=== PATIENT | female | born 1965 | race American Indian/Alaskan Native ===

== ENCOUNTER 2016-12-07 05:59 | Day surgery (SDC) | payer OTHER ==
--- NOTE | 2016-12-07 07:03 | Anesthesia Consultation ---
Anesthesia Consult and Med Hx Date of service: 12/07/16 - Airway Anesthetic Teeth Evaluation: Good ROM Head & Neck: Adequate Mental/Hyoid Distance: Adequate Mallampati Class: Class II Intubation Access Assessment: Probably Good - Pulmonary Exam CTA: Yes - Cardiac Exam Cardiac Exam: RRR - Pre-Operative Health Status ASA Pre-Surgery Classification: ASA3 Proposed Anesthetic Plan: General - Central Nervous System Hx Psychiatric Problems: No - Other Systems Hx Cancer: No Hx Obesity: Yes (morbid)
--- NOTE | 2016-12-07 07:03 | Anesthesia Day of Surgery ---
Anesthesia Day of Surgery - Day of Surgery Patient Examined: Yes Patient H&P Reviewed: Yes Patient is NPO: Yes
--- NOTE | 2016-12-07 07:14 | Short Stay Summary ---
Short Stay Documentation Date of service: 12/07/16 Narrative H&P: Pt is a 51yo BF LMP 11/25/16 presents for surgical evaluation and treatment of menorrhagia. Office biopsy was attempted, but failed due to cervical stenosis. She now presents for a Hysteroscopy with D&C. - History Principal diagnosis: Menorrhagia H&P: obtained from office Past Medical History: No medical history Past Surgical History: Other (BTL) Social history: no significant social history, single - Allergies and Medications Current Medications: Allergies No Known Allergies Allergy (Unverified 11/25/16 09:47) Home Medications Medication Instructions Recorded Confirmed Last Taken Type No Known Home Medications [No 11/25/16 11/25/16 Unknown History Reported Home Medications] Active Medications Famotidine (Pepcid) 20 mg IV PREOP NR Midazolam HCl (Versed) 2 mg IV PREOP NR Stop: 12/07/16 23:59 - Physical exam General appearance: no acute distress Integumentary: no rash HEENT: Atraumatic Lungs: Clear to auscultation Breasts: deferred Heart: Regular rate Gastrointestinal: normal Female Genitourinary: deferred Rectal Exam: deferred Extremities: no ischemia, No edema Neurological: Normal gait, Normal speech - Brief post op/procedure progress note Date of procedure: 12/07/16 Pre-op diagnosis: Menorrhagia Post-op diagnosis: same Procedure: 1. Hysteroscopy 2. D&C Anesthesia: MAC Findings: A 10-12 weeks size uterus with a submucosal fibroid and scant endometrial tissue. Surgeon: OSMAN MOYA Estimated blood loss: minimal Pathology: list (Endometrial currettings) Specimen disposition: to lab Condition: stable - Hospital course Hospital course: Unremarkable. - Disposition Condition at discharge: Good Disposition: DC- TO HOME OR SELFCARE - Discharge Diagnoses (1) Menorrhagia Status: Chronic Qualifiers: Menorrahagia type: with irregular cycle Qualified Code(s): N92.1 - Excessive and frequent menstruation with irregular cycle Short Stay Discharge Plan Activity: no restrictions Diet: regular Follow up with: OSMAN MOYA MD [Staff Physician] - 14 Days Prescriptions: HYDROcodone/APAP 5-325 [[place] 5/325] 1 each PO Q6HR PRN #10 tablet PRN Reason: Pain Ibuprofen [Motrin] 800 mg PO Q8HR PRN #30 tablet PRN Reason: Moder Pain Unrelieved By [place]
[2016-12-07] MEDS ORDERED: NACL BACTERIOSTATIC INFILTRATI ONE (07:35)
[2016-12-07] MEDS ORDERED: DIPRIVAN 10 MG/ML IV ONE ×2 (07:40→10:17)
[2016-12-07] MEDS ORDERED: XYLOCAINE MPF 2% ONE (07:40)
[2016-12-07] MEDS ORDERED: SUBLIMAZE ONE (07:40)
[2016-12-07 07:58] LABS: Hematocrit 34.2 % (30.3-42.9); Hemoglobin 11.7 gm/dl (10.1-14.3)
[2016-12-07] MEDS ORDERED: VERSED IV NR (08:00)
[2016-12-07] MEDS ORDERED: PEPCID IV NR (08:00)
[2016-12-07] MEDS ORDERED: ANCEF/STERILE WATER 2 GM/20 ML 2 GM/20 ML SYRINGE IV NR (08:00)
[2016-12-07] MEDS ORDERED: LACTATED RINGERS 1,000 ML IV SCH (08:00)
[2016-12-07] MEDS ORDERED: SORBITOL-MANNITOL IRRIG IR ONE (08:05)
[2016-12-07] MEDS ORDERED: NACL 0.9% IR ONE ×2 (08:05)
[2016-12-07] MEDS ORDERED: ZOFRAN ONE (08:29)
[2016-12-07] MEDS ORDERED: DECADRON ONE (08:29)
--- NOTE | 2016-12-07 08:54 | Operative Report ---
Operative Report Operative Report: PREOPERATIVE DIAGNOSIS: Menorrhagia POSTOPERATIVE DIAGNOSIS: Same OPERATIVE PROCEDURE: 1. Hysteroscopy 2. Dilatation and curettage. SURGEON: Vish Rojas MD ANESTHESIA: General Mac ANESTHESIOLOGIST: Dr. Robb ESTIMATED BLOOD LOSS: Less than 10 mL's FINDINGS: A 10-12 week size uterus with a large submucosal fibroid and scant endometrial tissue COMPLICATIONS: None COUNTS: Correct x3. PROCEDURE: After the patient was correctly identified, and after general anesthesia was administered, the patient was prepped and draped in the usual sterile fashion and placed in dorsal lithotomy position. First, the bladder was emptied using a straight catheter. Next, a speculum was placed in the vaginal vault and the anterior lip of the cervix was grasped using a single- tooth tenaculum. The uterus was sounded to 10 cm. The cervical os was sequentially dilated, and the hysteroscope was introduced into the cervical canal. Visualization of the endometrial cavity found a large submucosal fibroid and scant endometrial tissue. The hysteroscope was then removed and sharp curettage was performed yielding scant endometrial tissue which was sent to pathology. After all the endometrial tissue were removed, the procedure was considered complete. All instruments were removed from the vagina. The patient tolerated the procedure well and was transferred to the recovery room in stable condition.
--- NOTE | 2016-12-07 09:20 | Post Anesthesia Evaluation ---
- Post Anesthesia Evaluation Patient Participated: Yes Airway Patent: Yes Stable Respiratory Function: Yes Temp > 96.8F: Yes Pain Manageable: Yes Adequeate Hydration: Yes Anesthesia Complications: No Block Receding Appropriately: Not Applicable
[2016-12-07 10:02] VITALS: BP 134/72
== END 2016-12-07 10:37 | disposition home or self-care (01) ==
LOC: OR 05:59
PROVIDERS: ATTEND Obstetrics & Gynecology
DX: D25.0 Submucous leiomyoma of uterus (principal); N85.02 Endometrial intraepithelial neoplasia [EIN]; E66.01 Morbid (severe) obesity due to excess calories; Z68.43 Body mass index [BMI] 50.0-59.9, adult; Z98.51 Tubal ligation status
CPT/HCPCS: 36415; 58558; 81025; 85014; 85018; 88305; A4217; J0690; J1100; J2250; J2405; J2704; J3010; J7120

== ENCOUNTER 2017-01-18 12:59 | Emergency (ER) | payer OTHER ==
[2017-01-18 14:17] LABS: Hemoglobin 8.4 gm/dl (10.1-14.3); Mean Corpuscular HGB Conc 32 % (30-34); Mean Corpuscular Hemoglobin 29 pg (28-32); Mean Corpuscular Volume 89 fl (79-97); Platelet Count 292 K/mm3 (140-440); Red Blood Count 2.92 M/mm3 (3.65-5.03); Red Cell Distribution Width 15.5 % (13.2-15.2); White Blood Count 7.1 K/mm3 (4.5-11.0)
[2017-01-18 14:30] LABS: INR 1.35 (0.87-1.13)
[2017-01-18 14:33] LABS: Anion Gap 16 mmol/L; BUN/Creatinine Ratio 12.85; Blood Urea Nitrogen 9 mg/dL (7-17); Calcium 8.5 mg/dL (8.4-10.2); Carbon Dioxide 25 mmol/L (22-30); Chloride 99.9 mmol/L (98-107); Glucose 80 mg/dL (65-100); Potassium 4.2 mmol/L (3.6-5.0); Sodium 137 mmol/L (137-145)
[2017-01-18 15:03] LABS: Basophils % (Manual) 0 % (0.0-1.8); Blastocytes % (Manual) 0 %; Diff Status Complete; Hypochromasia 1+; Polychromasia Few
--- NOTE | 2017-01-18 20:22 | Ultrasound Report ---
FINAL REPORT EXAM: US PELVIC COMPLETE HISTORY: Vaginal bleeding TECHNIQUE: Transabdominal sonography of the pelvis. PRIORS: None. FINDINGS: Patient body habitus limits examination somewhat. The uterus is enlarged measuring 12.8 x 8.7 x 9.2 cm, has heterogeneous echogenicity and contains multiple fibroids, some probably partially calcified. Largest is located in mid posterior corpus region measuring 5.4 x 3.8 x 4.6 cm. Next largest noted in the anterior corpus-fundal region measuring 4.2 x 3.5 x 3.8 cm. Additional fibroid in the fundal region measuring 3.9 x 3.7 x 3.2 cm. The endometrial stripe is obscured and not confidently identified by the technician's helper. Neither ovary is confidently identified by the technician's helper. No adnexal masses or significant free peritoneal fluid. IMPRESSION: 1. Leiomyomatous change in the uterus. 2. Nonvisualization of the ovaries.
--- NOTE | 2017-01-18 22:16 | Emergency Department Report ---
HPI - General Chief Complaint: Vaginal Bleeding Time Seen by Provider: 01/18/17 21:49 - HPI HPI: Fully 11-year-old female brought to the ED with vaginal bleeding. Patient states symptoms have been going on for the past 3 months, had D&C by her upper cutter machine Dr. Vish Rojas in November. Patient states symptoms initially got better but not worsened. Patient denies any nausea, vomiting, chest pain, shortness of breath. ED Past Medical Hx - Past Medical History Hx Headaches / Migraines: Yes (migraines) Hx HIV: No Additional medical history: FIBROIDS - Social History Smoking Status: Never Smoker Substance Use Type: None - Medications Home Medications: Home Medications Medication Instructions Recorded Confirmed Last Taken Type HYDROcodone/APAP 5-325 [[place] 1 each PO Q6HR PRN #10 tablet 12/07/16 Unknown Rx 5/325] Ibuprofen [Motrin] 800 mg PO Q8HR PRN #30 tablet 12/07/16 Unknown Rx ED Review of Systems ROS: Stated complaint: HEAVY VAG BLEEDING Other details as noted in HPI Comment: All other systems reviewed and negative Genitourinary: other (vaginal bleeding) Physical Exam - Physical Exam Vital Signs: Vital Signs 01/18/17 01/18/17 01/18/17 13:07 17:58 21:03 Temperature 97 F L 98.4 F 98.5 F Pulse Rate 80 78 84 Respiratory 16 18 18 Rate Blood Pressure 139/90 147/106 130/54 O2 Sat by Pulse 100 100 100 Oximetry Physical Exam: GENERAL: The patient is well-developed well-nourished [] HEENT: Normocephalic. Atraumatic. Extraocular motions are intact. Patient has moist mucous membranes. NECK: Supple. No meningitic signs are noted. There is no adenopathy noted. CHEST/LUNGS: Clear to auscultation. There is no respiratory distress noted. HEART/CARDIOVASCULAR: Regular. There is no tachycardia. There is no gallop rub or murmur. ABDOMEN: Abdomen is soft, nontender. Patient has normal bowel sounds. There is no abdominal distention. SKIN: There is no rash. There is no edema. There is no diaphoresis. NEURO: The patient is awake, alert, and oriented. The patient is cooperative. The patient has no focal neurologic deficits. The patient has normal speech. Cranial nerves II through XII grossly intact, no drift. Moves all extremities well MUSCULOSKELETAL: There is no evidence of acute injury. ED Course Vital Signs 01/18/17 01/18/17 01/18/17 13:07 17:58 21:03 Temperature 97 F L 98.4 F 98.5 F Pulse Rate 80 78 84 Respiratory 16 18 18 Rate Blood Pressure 139/90 147/106 130/54 O2 Sat by Pulse 100 100 100 Oximetry ED Medical Decision Making - Lab Data Result diagrams: 01/18/17 13:53 01/18/17 13:53 Critical care attestation.: If time is entered above; I have spent that time in minutes in the direct care of this critically ill patient, excluding procedure time. ED Disposition Clinical Impression: Menorrhagia Qualifiers: Menorrahagia type: premenopausal Qualified Code(s): N92.4 - Excessive bleeding in the premenopausal period Disposition: DC-01 TO HOME OR SELFCARE Is pt being admited?: No Does the pt Need Aspirin: No Condition: Stable Referrals: PRIMARY CAREMD [Primary Care Provider] - 3-5 Days VISH ROJAS MD [Staff Physician] - 3-5 Days
[2017-01-18 22:42] VITALS: BP 112/70
== END 2017-01-18 22:30 | disposition home or self-care (01) ==
LOC: ED 12:59
DX: N92.0 Excessive and frequent menstruation with regular cycle (principal); G43.909 Migraine, unspecified, not intractable, without status migrainosus
CPT/HCPCS: 36415; 76856; 80048; 84702; 85007; 85025; 85610; 85730; 86850; 86900; 86901

== ENCOUNTER 2017-02-14 08:23 | Inpatient (IN) | payer OTHER ==
--- NOTE | 2017-02-13 10:40 | Anesthesia Consultation ---
Anesthesia Consult and Med Hx Date of service: 02/13/17 - Airway Anesthetic Teeth Evaluation: Good ROM Head & Neck: Adequate Mental/Hyoid Distance: Adequate Mallampati Class: Class II Intubation Access Assessment: Probably Good - Pulmonary Exam CTA: Yes - Cardiac Exam Cardiac Exam: RRR - Pre-Operative Health Status ASA Pre-Surgery Classification: ASA2 Proposed Anesthetic Plan: General - Pulmonary Hx Smoking: No Hx Asthma: No - Cardiovascular System Hx Hypertension: No - Central Nervous System Hx Psychiatric Problems: No - Other Systems Hx Cancer: No Hx Obesity: Yes (morbid)
[2017-02-13 11:22] LABS: Hematocrit 28.9 % (30.3-42.9); Hemoglobin 9.2 gm/dl (10.1-14.3); Mean Corpuscular HGB Conc 32 % (30-34); Mean Corpuscular Hemoglobin 27 pg (28-32); Mean Corpuscular Volume 85 fl (79-97); Platelet Count 258 K/mm3 (140-440); Red Blood Count 3.39 M/mm3 (3.65-5.03)
[2017-02-13 12:45] LABS: Basophils % (Manual) 0 % (0.0-1.8); Blastocytes % (Manual) 0 %
[2017-02-13 12:46] LABS: Hypochromasia 1+
[2017-02-13 12:48] LABS: Anisocytosis 1+; Diff Status Complete; Ovalocytes 1+; Platelet Estimate Consistent w Auto; Poikilocytosis 1+; Stomatocytes 1+
[~2017-02-14 08:23] MED LIST: NACL 0.9% 1000 ML 1,000 ML IV SCH; PEPCID PO NR; VERSED IV NR
[2017-02-14] MEDS ORDERED: ANCEF/STERILE WATER 2 GM/20 ML 2 GM/20 ML SYRINGE IV SCH (09:00)
--- NOTE | 2017-02-14 09:02 | History and Physical Report ---
History of Present Illness Date of examination: 02/14/17 Date of admission: 02/14/17 08:23 Chief complaint: Symptomatic fibroid uterus History of present illness: Pt is a 51yo BF LMP 12/14/16 presents for surgical evaluation and treatment of uterine fibroids. Pelvic u/s showed an enlarged uterus 16 x 11 x 8.4cm with 5 fibroids. Pt desires a Total Abdominal Hysterectomy with Ovarian conservation. Discussed the pros and cons of leaving the ovaries, and she desires to keep her ovaries. 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 Family/Genetic History: diabetes, hypertension Social history: no significant social history, single Medications and Allergies Allergies Allergy/AdvReac Type Severity Reaction Status Date / Time No Known Allergies Allergy Verified 02/10/17 08:43 Home Medications Medication Instructions Recorded Confirmed Last Taken Type No Known Home Medications [No 02/10/17 02/10/17 Unknown History Reported Home Medications] Active Meds: Active Medications Famotidine (Pepcid) 20 mg PO PREOP NR Stop: 02/14/17 23:00 Sodium Chloride (Nacl 0.9% 1000 Ml) 1,000 mls @ 100 mls/hr IV DIRECT LAMONT Stop: 02/14/17 23:00 Midazolam HCl (Versed) 2 mg IV PREOP NR Stop: 02/14/17 23:00 Review of Systems All systems: negative - Vital Signs Vital signs: Vital Signs Temp Pulse Resp BP 98.8 F 80 16 124/78 02/13/17 10:40 02/13/17 10:40 02/13/17 10:40 02/13/17 10:40 Temp Pulse Resp BP Pulse Ox 97.6 F 74 20 144/76 100 02/14/17 08:53 02/14/17 08:53 02/14/17 08:53 02/14/17 08:53 02/14/17 08:53 - Physical Exam Breasts: Positive: deferred Cardiovascular: Regular rate Lungs: Positive: Clear to auscultation Abdomen: Positive: normal appearance, soft Genitourinary (Female): Positive: normal external genitalia Vagina: Positive: normal moisture Uterus: Positive: enlarged Extremities: Positive: normal Results Result Diagrams: 02/13/17 Unknown Abnormal lab results 02/13/17 Range/Units Unknown RBC 3.39 L (3.65-5.03) M/mm3 Hgb 9.2 L (10.1-14.3) gm/dl Hct 28.9 L (30.3-42.9) % MCH 27 L (28-32) pg RDW 21.0 H (13.2-15.2) % Lymphocytes % (Manual) 47.0 H (13.4-35.0) % All other labs normal. Ultrasound: report reviewed Assessment and Plan - Patient Problems (1) Uterine fibroid Onset Date: 02/14/17 Current Visit: Yes Status: Acute Qualifiers: Uterine leiomyoma location: intramural and submucous Qualified Code(s): D25.1 - Intramural leiomyoma of uterus; D25.0 - Submucous leiomyoma of uterus Plan to address problem: A: Symptomatic uterine fibroids Chronic blood loss anemia P: Admit for a Total Abdominal Hysterectomy with Bilateral Salpingectomy (2) Chronic blood loss anemia Onset Date: 02/14/17 Current Visit: Yes Status: Chronic
[2017-02-14] MEDS ORDERED: NACL BACTERIOSTATIC INFILTRATI ONE (09:03)
[2017-02-14] MEDS ORDERED: ZEMURON IV ONE (09:39)
[2017-02-14] MEDS ORDERED: ZOFRAN ONE (09:39)
[2017-02-14] MEDS ORDERED: XYLOCAINE MPF 2% ONE ×3 (09:39→13:11)
[2017-02-14] MEDS ORDERED: SUBLIMAZE ONE (09:39)
[2017-02-14] MEDS ORDERED: DIPRIVAN 10 MG/ML IV ONE (09:39)
[2017-02-14] MEDS ORDERED: DECADRON ONE (09:39)
[2017-02-14] MEDS ORDERED: MORPHINE IV ONE (10:11)
[2017-02-14] MEDS ORDERED: NEURONTIN PO NR (11:00)
[2017-02-14] MEDS ORDERED: NACL 0.9% 1000 ML 1,000 ML ONE (11:27)
[2017-02-14] MEDS ORDERED: NEOSTIGMINE ONE (11:33)
[2017-02-14] MEDS ORDERED: ROBINUL ONE ×2 (11:33)
[2017-02-14] MEDS ORDERED: ACD-A 500 ML IV ONE (11:40)
[2017-02-14] MEDS ORDERED: ACD-A IV ONE (11:52)
[2017-02-14] MEDS ORDERED: NACL 0.9% IR ONE (11:52)
[2017-02-14] MEDS ORDERED: NARCAN 0.4 MG/1 ML IV PRN (12:54)
[2017-02-14] MEDS ORDERED: SODIUM CHLORIDE FLUSH SYRINGE 10 ML IV PRN (12:54)
[2017-02-14] MEDS ORDERED: TYLENOL PO PRN (12:55)
[2017-02-14] MEDS ORDERED: MILK OF MAGNESIA PO PRN (12:55)
[2017-02-14] MEDS ORDERED: ZOFRAN IV PRN (12:55)
[2017-02-14] MEDS ORDERED: ANCEF/NS 1 GM/50 ML 1 GM/50 ML BAG IV SCH (13:00)
--- NOTE | 2017-02-14 13:08 | Operative Report ---
Operative Report Operative Report: Date of procedure: 02/14/2017 Pre-operative diagnosis: 1. Symptomatic fibroid uterus 2. Menorrhagia Post-operative diagnosis: Same Procedure name(s): 1. Total abdominal hysterectomy 2. Bilateral salpingectomy Surgeon: Vish Rojas MD Laborer Vineyard: Paloma Randhawa SA Anesthesia: Epidural followed by general endotracheal intubation by Dr. Jackson EBL: 50 mls Findings: A 16 week size multi-myomatous uterus, tubes showing evidence of previous tubal ligation bilaterally and small ovaries bilaterally. Procedure: After the patient was first correctly identified and after general anesthesia was administered she was prepped and draped in usual in the usual sterile fashion and placed in the dorsolithotomy position. The skin knife was used to make a transverse skin incision. The incision was extended down to the layer of the fascia which was nicked in the midline and extended laterally using Bovie cautery. The rectus muscles were dissected off the rectus fascia both superiorly and inferiorly, the rectus bellies in the midline and the peritoneum was entered under direct visualization. Exploration of the pelvic organs found the uterus to be enlarged, about 16 weeks' size and the tubes showed evidence of previous tubal ligation bilaterally and ovaries were normal bilaterally. Next the bowels were packed back and the round ligaments were clamped, cauterized and cut using the Enseal device. The utero-ovarian ligaments were clamped, cauterized and cut, thus freeing the right ovary from the right uterine sidewall. Same procedure was performed on the left. The left round ligament was clamped, cauterized and cut using the Enseal device. The left utero-ovarian ligaments were clamped, cauterized and cut thus freeing the left ovary from the left uterine sidewall. The uterine vessels were then skeletonized bilaterally, and the bladder flap was taken down anteriorly. The uterine vessels were then clamped, cauterized and cut bilaterally, and the cardinal ligaments were sequentially clamped, cauterized and cut down to the level of the uterosacral ligaments. The cervix was then amputated from the vaginal cuff and the specimen was handed off the surgical field. The vaginal cuff was then made hemostatic using several sutures of 0 Vicryl suture in a [id number] configuration. After excellent hemostasis was assured copious amounts of irrigation was then performed. The retroperitoneum was reapproximated using 3-0 Vicryl suture in a running interlocking fashion. The Tisseel sealant was then sprayed across the vaginal cuff and the superior pedicles bilaterally and after excellent hemostasis was assured the procedure was considered complete. All instruments removed from abdomen, and the peritoneum was closed using 0 Vicryl suture in a running interlocking fashion and the rectus muscles were also loosely reapproximated using 0 Vicryl suture in a [id number] configuration. The fascia was then reapproximated using # 1 Vicryl suture in a running interlocking fashion, the subcutaneous layer made hemostatic using Bovie cautery and the skin edges reapproximated using 4-0 Vicryl suture in a subcuticular fashion. Patient tolerated the procedure well was transported to recovery room in stable condition.
[2017-02-14] MEDS: DILAUDID IV PRN ×4 (13:45→14:55)
[2017-02-14] MEDS ORDERED: DILAUDID ONE (13:47)
[2017-02-14] MEDS: fentaNYL-BUPIV 2 MCG/ML-0.125% 200 MCG/100 ML BAG EPIDURAL SCH (14:14)
[2017-02-14] MEDS ORDERED: XYLOCAINE 1% 20 mL ONE (14:19)
[2017-02-14] MEDS ORDERED: MARCAINE-EPI/PF 0.5%-1:200,000 INFILTRATI ONE (14:19)
[2017-02-14] MEDS ORDERED: TORADOL ONE (18:40)
[2017-02-14] MEDS: TORADOL IV SCH (18:40)
--- NOTE | 2017-02-14 18:54 | Post Anesthesia Evaluation ---
- Post Anesthesia Evaluation Patient Participated: Yes Airway Patent: Yes Stable Respiratory Function: Yes Nausea/Vomiting: No Temp > 96.8F: Yes Pain Manageable: Yes Adequeate Hydration: Yes Anesthesia Complications: No Block Receding Appropriately: Not Applicable Patient on Ventilator: No
[2017-02-14] MEDS: D5LR 1,000 ML IV SCH (20:03)
[2017-02-14] MEDS: COLACE PO SCH (22:44)
[2017-02-15] MEDS: TORADOL IV SCH ×4 (01:48→22:19)
[2017-02-15] MEDS: fentaNYL-BUPIV 2 MCG/ML-0.125% 200 MCG/100 ML BAG EPIDURAL SCH (01:48)
[2017-02-15 03:35] LABS: Hematocrit 25.4 % (30.3-42.9); Hemoglobin 8.3 gm/dl (10.1-14.3)
[2017-02-15] MEDS ORDERED: ANCEF/NS 1 GM/50 ML 1 GM/50 ML BAG IV SCH (04:00)
[2017-02-15] MEDS: D5LR 1,000 ML IV SCH (05:24)
--- NOTE | 2017-02-15 07:06 | Progress Note ---
Assessment and Plan - Patient Problems (1) Uterine fibroid Onset Date: 02/14/17 Current Visit: Yes Status: Resolved Qualifiers: Uterine leiomyoma location: intramural and submucous Qualified Code(s): D25.1 - Intramural leiomyoma of uterus; D25.0 - Submucous leiomyoma of uterus (2) Chronic blood loss anemia Onset Date: 02/14/17 Current Visit: Yes Status: Chronic (3) S/P SAMMI (total abdominal hysterectomy) Onset Date: 02/15/17 Current Visit: Yes Status: Resolved Plan to address problem: A: s/p SAMMI - POD #1 Doing well P: Continue RPOC Anticipate discharge to home in 24-48hrs Subjective - Subjective Date of service: 02/15/17 Principal diagnosis: s/p SAMMI - POD #1 Interval history: Pt is feeling well without complaints. She is tolerating a liquid diet without nausea or vomiting. +Flatus Patient reports: appetite normal, voiding normally, pain well controlled, flatus Objective - Vital Signs Latest vital signs: Vital Signs Temp Pulse Resp BP BP Pulse Ox 02/15/17 04:50 98.4 F 78 18 105/46 02/15/17 00:15 98.6 F 82 18 119/59 02/14/17 20:35 98.7 F 81 18 105/56 02/14/17 17:00 98.5 F 70 20 138/82 02/14/17 16:10 97.4 F L 69 14 133/77 97 02/14/17 16:00 98.2 F 14 L 133/77 97 02/14/17 15:30 69 17 117/72 96 02/14/17 15:15 66 15 125/75 97 02/14/17 15:00 67 19 125/71 95 02/14/17 14:55 18 02/14/17 14:45 67 21 125/75 97 02/14/17 14:35 19 02/14/17 14:30 68 16 117/70 94 02/14/17 14:15 67 18 114/71 100 02/14/17 14:14 20 02/14/17 14:00 70 19 111/70 100 02/14/17 13:55 20 02/14/17 13:45 78 19 113/72 100 02/14/17 13:40 83 21 120/71 100 02/14/17 13:35 89 21 115/70 100 02/14/17 13:30 89 23 121/75 100 02/14/17 13:25 97.5 F L 97 H 18 131/77 100 02/14/17 11:05 63 21 95/57 100 02/14/17 11:00 68 14 119/54 100 02/14/17 10:55 77 16 102/70 02/14/17 10:50 84 15 125/69 100 02/14/17 10:45 90 16 137/87 02/14/17 10:40 98 H 12 132/93 02/14/17 08:53 97.6 F 74 20 144/76 02/14/17 08:45 97.6 F 74 20 144/76 100 Intake and Output 02/14/17 02/15/17 02/15/17 22:59 06:59 14:59 Intake Total 200 1240 Output Total 700 1100 Balance -500 140 Intake: IV 1000 D5lr 1,000 ml @ 125 mls/ 1000 hr IV DIRECT LAMONT Rx#: [id number] Oral 200 240 Output: Urine 700 1100 Indwelling Catheter 1100 Other: Total, Intake Amount 120 Total, Output Amount 200 Voiding Method Indwelling Catheter Weight 151.017 kg - Exam Breasts: Present: deferred Cardiovascular: Present: Regular rate Lungs: Present: Clear to auscultation Abdomen: Present: normal appearance, soft Extremities: Present: normal Incision: Present: normal, dry, intact, dressed - Labs Labs: Abnormal lab results 02/15/17 Range/Units 03:12 Hgb 8.3 L (10.1-14.3) gm/dl Hct 25.4 L (30.3-42.9) % Laboratory Tests 02/13/17 02/13/17 02/13/17 Unknown Unknown Unknown WBC 5.0 RBC 3.39 L Hgb 9.2 L Hct 28.9 L MCV 85 MCH 27 L MCHC 32 RDW 21.0 H Plt Count 258 Lymph % (Auto) Machine Load Clerk Add Manual Diff Complete Total Counted 100 Seg Neutrophils % Machine Load Clerk Seg Neuts % (Manual) 44.0 Band Neutrophils % 0 Lymphocytes % (Manual) 47.0 H Reactive Lymphs % (Man) 1.0 Monocytes % (Manual) 4.0 Eosinophils % (Manual) 4.0 Basophils % (Manual) 0 Metamyelocytes % 0 Myelocytes % 0 Promyelocytes % 0 Blast Cells % 0 Nucleated RBC % Not Reportable Seg Neutrophils # Man 2.2 Band Neutrophils # 0.0 Lymphocytes # (Manual) 2.4 Abs React Lymphs (Man) 0.1 Monocytes # (Manual) 0.2 Eosinophils # (Manual) 0.2 Basophils # (Manual) 0.0 Metamyelocytes # 0.0 Myelocytes # 0.0 Promyelocytes # 0.0 Blast Cells # 0.0 WBC Morphology Not Reportable Hypersegmented Neuts Not Reportable Hyposegmented Neuts Not Reportable Hypogranular Neuts Not Reportable Smudge Cells Not Reportable Toxic Granulation Not Reportable Toxic Vacuolation Not Reportable Dohle Bodies Not Reportable Pelger-Huet Anomaly Not Reportable Kim Rods Not Reportable Platelet Estimate Consistent w auto Clumped Platelets Not Reportable Plt Clumps, EDTA Not Reportable Large Platelets Not Reportable Giant Platelets Not Reportable Platelet Satelliting Not Reportable Plt Morphology Comment Not Reportable RBC Morphology Not Reportable Dimorphic RBCs Not Reportable Polychromasia Not Reportable Hypochromasia 1+ Poikilocytosis 1+ Anisocytosis 1+ Microcytosis Not Reportable Macrocytosis Not Reportable Spherocytes Not Reportable Pappenheimer Bodies Not Reportable Sickle Cells Not Reportable Target Cells Not Reportable Tear Drop Cells Not Reportable Ovalocytes 1+ Stomatocytes 1+ Helmet Cells Not Reportable [place] Bodies Not Reportable [place] Rings Not Reportable [place] Cells Not Reportable Bite Cells Not Reportable Crenated Cell Not Reportable Elliptocytes Not Reportable Acanthocytes (Spur) Not Reportable Rouleaux Not Reportable Hemoglobin C Crystals Not Reportable Schistocytes Not Reportable Malaria parasites Not Reportable Ej Bodies Not Reportable Hem Pathologist Commnt No HCG, Qual Negative Blood Type B POSITIVE Antibody Screen Negative 02/15/17 03:12 WBC RBC Hgb 8.3 L Hct 25.4 L MCV MCH MCHC RDW Plt Count Lymph % (Auto) Add Manual Diff Total Counted Seg Neutrophils % Seg Neuts % (Manual) Band Neutrophils % Lymphocytes % (Manual) Reactive Lymphs % (Man) Monocytes % (Manual) Eosinophils % (Manual) Basophils % (Manual) Metamyelocytes % Myelocytes % Promyelocytes % Blast Cells % Nucleated RBC % Seg Neutrophils # Man Band Neutrophils # Lymphocytes # (Manual) Abs React Lymphs (Man) Monocytes # (Manual) Eosinophils # (Manual) Basophils # (Manual) Metamyelocytes # Myelocytes # Promyelocytes # Blast Cells # WBC Morphology Hypersegmented Neuts Hyposegmented Neuts Hypogranular Neuts Smudge Cells Toxic Granulation Toxic Vacuolation Dohle Bodies Pelger-Huet Anomaly Kim Rods Platelet Estimate Clumped Platelets Plt Clumps, EDTA Large Platelets Giant Platelets Platelet Satelliting Plt Morphology Comment RBC Morphology Dimorphic RBCs Polychromasia Hypochromasia Poikilocytosis Anisocytosis Microcytosis Macrocytosis Spherocytes Pappenheimer Bodies Sickle Cells Target Cells Tear Drop Cells Ovalocytes Stomatocytes Helmet Cells [place] Bodies [place] Rings [place] Cells Bite Cells Crenated Cell Elliptocytes Acanthocytes (Spur) Rouleaux Hemoglobin C Crystals Schistocytes Malaria parasites Ej Bodies Hem Pathologist Commnt HCG, Qual Blood Type Antibody Screen
[2017-02-15] MEDS: PERCOCET 5/325 PO PRN ×2 (08:00→14:14)
--- NOTE | 2017-02-15 10:20 | Progress Note ---
Subjective Date of service: 02/15/17 Principal diagnosis: s/p SAMMI - POD #1 Interval history: 1st POD after hysterectomy Patient is in the bed, comfortable. Pain is well under control. Epidural infusion is continued but planned to be d/earl later today. Has not ambulated yet. No nausea or vomiting. No anesthesia complications Objective - Constitutional Vitals: Vital Signs - 12hr 02/15/17 02/15/17 02/15/17 00:15 04:50 07:30 Temperature 98.6 F 98.4 F 98.4 F Pulse Rate 82 78 85 Respiratory 18 18 20 Rate Respiratory Rate [Abdomen] Blood Pressure 119/59 105/46 101/48 [Right] O2 Sat by Pulse 98 Oximetry 02/15/17 02/15/17 02/15/17 07:50 08:00 08:01 Temperature Pulse Rate Respiratory 18 18 18 Rate Respiratory 18 Rate [Abdomen] Blood Pressure [Right] O2 Sat by Pulse Oximetry - Labs CBC & Chem 7: 02/15/17 03:12 Labs: Abnormal lab results 02/15/17 Range/Units 03:12 Hgb 8.3 L (10.1-14.3) gm/dl Hct 25.4 L (30.3-42.9) %
[2017-02-15] MEDS: COLACE PO SCH ×2 (14:23→22:20)
[2017-02-16] MEDS: TORADOL IV SCH (06:38)
[2017-02-16] MEDS: NORCO 5/325 PO PRN ×2 (09:08→16:19)
--- NOTE | 2017-02-16 11:15 | Progress Note ---
Assessment and Plan A: s/p SAMMI - POD #2 Doing well P: -Discharged home today -Up in clinic in 1-2 weeks - Patient Problems (1) S/P SAMMI (total abdominal hysterectomy) Onset Date: 02/15/17 Current Visit: Yes Status: Resolved Subjective - Subjective Date of service: 02/16/17 Principal diagnosis: s/p SAMMI - POD #2 Interval history: Patient seen and examined, stable doing well. No issues desires discharge home Patient reports: appetite normal, voiding normally, pain well controlled, flatus , no dizzy ambulation, no ambulating normally, no nauseated Objective - Vital Signs Latest vital signs: Vital Signs Temp Pulse Resp BP Pulse Ox 02/16/17 08:50 97.8 F 83 18 117/67 02/16/17 05:10 98.7 F 71 18 114/50 02/16/17 00:45 98.7 F 89 20 113/63 02/15/17 20:42 99.4 F 89 18 113/77 02/15/17 16:40 98.2 F 65 20 93/50 02/15/17 14:23 18 02/15/17 14:14 18 02/15/17 11:37 98.2 F 85 18 102/51 98 Intake and Output 02/15/17 02/16/17 02/16/17 22:59 06:59 14:59 Intake Total 600 720 120 Output Total 450 300 Balance 150 420 120 Intake: Oral 600 120 Intake, Free Water 720 Output: Urine 450 300 Indwelling Catheter 0 Void 450 300 Other: Total, Intake Amount 120 120 Total, Output Amount 300 300 Voiding Method Toilet # Voids Void 2 1 - Exam Abdomen: Present: normal appearance, soft. Absent: distention, tenderness, guarding, rigidity Extremities: Present: normal Incision: Present: dry, intact
--- NOTE | 2017-02-16 11:17 | Discharge Summary ---
Providers - Providers Date of Admission: 02/14/17 08:23 Date of discharge: 02/16/17 Attending physician: OSMAN MOYA Primary care physician: [facility] [employer] Hospitalization Reason for admission: other (uterine fibroids, normal uterine bleeding, desires hysterectomy) Procedure: other (total abdominal hysterectomy with bilateral salpingectomy) Discharge diagnosis: other (s/p total abdominal hysterectomy for abnormal uterine bleeding/HMBL) Hospital course: unComplicated postoperative course Condition at discharge: Good Disposition: DC-01 TO HOME OR SELFCARE - Discharge Diagnoses (1) S/P SAMMI (total abdominal hysterectomy) Status: Resolved Plan - Discharge Medications Prescriptions: HYDROcodone/APAP 5-325 [[place] 5/325] 1 each PO Q6HR PRN #30 tablet PRN Reason: Pain Ibuprofen [Motrin] 800 mg PO Q8HR PRN #30 tablet PRN Reason: Moder Pain Unrelieved By [place] - Provider Discharge Summary Activity: no sex for 6 weeks, no heavy lifting 4 weeks, no strenuous exercise Diet: routine Additional instructions: [] Smoking cessation referral if applicable(refer to patient education folder for contact #) [] Refer to [facility] Booklet Call your doctor immediately for: * Fever > 100.5 * Heavy vaginal bleeding ( >1 pad per hour) * Severe persistent headache * Shortness of breath * Reddened, hot, painful area to leg or breast * Drainage or odor from incision. * Keep incision clean and dry at all times and follow doctor's instructions regarding bathing/showering - Follow up plan Follow up: PRIMARY CAREMD [Primary Care Provider] - 7 Days MERRICK MOYA [Registered Nurse] - 7 Days OSMAN MOYA MD [Staff Physician] - 7 Days
[2017-02-16 17:48] VITALS: BP 132/71
== END 2017-02-16 18:40 | disposition home or self-care (01) | DRG 742 ==
LOC: 3A 08:23 → OB 14:16
PROVIDERS: ADMIT Obstetrics & Gynecology; ATTEND Obstetrics & Gynecology
PROC: 0UT90ZZ Resection of Uterus, Open Approach (ICD-10-PCS; principal; 2017-02-14)
PROC: 0UTC0ZZ Resection of Cervix, Open Approach (ICD-10-PCS; 2017-02-14)
PROC: 0UT70ZZ Resection of Bilateral Fallopian Tubes, Open Approach (ICD-10-PCS; 2017-02-14)
DX: D25.9 Leiomyoma of uterus, unspecified (principal); Z68.44 Body mass index [BMI] 60.0-69.9, adult; D50.0 Iron deficiency anemia secondary to blood loss (chronic); N92.0 Excessive and frequent menstruation with regular cycle; E66.01 Morbid (severe) obesity due to excess calories; Z83.3 Family history of diabetes mellitus; Z82.49 Family history of ischemic heart disease and other diseases of the circulatory system
CPT/HCPCS: 36415; 62324; 84703; 85007; 85014; 85018; 85025; 86850; 86900; 86901; 88302; 88307; C1765; C9250; J0690; J1100; J1170; J1885; J2250; J2270; J2405; J2704; J2710; J3010; J7030; J7121